=== PATIENT | female | born 1995 | race African-American/Black ===

== ENCOUNTER 2018-11-03 15:33 | Emergency (ER) | payer MEDICAID, OTHER ==
[~2018-11-03] VITALS: Ht 172.7 cm; Wt 105.2 kg
[2018-11-03 15:50] VITALS: BP 153/91
== END 2018-11-03 19:43 | disposition left against medical advice (07) ==
LOC: ER 15:33 → EDBD 15:33 → ER 19:43
DX: R11.2 Nausea with vomiting, unspecified (principal); R07.0 Pain in throat; Z53.21 Procedure and treatment not carried out due to patient leaving prior to being seen by health care provider